=== PATIENT | male | born 1945 | race Caucasian/White ===

== ENCOUNTER 2017-12-22 07:39 | Day surgery (SDC) | payer MEDICARE, BC ==
[~2017-12-22] VITALS: Ht 167.6 cm; Wt 81.3 kg
[~2017-12-22 07:39] MED LIST: ATOR20; CALCAVITD; CEPH500 PO; CHOL10002; CYCL10; DAILY MULTIPLE1 EACH; DOXY100; FAMO40; FLAX; Flomax0.4 MG PO; METF500; NORT10; Norco 10-325 T1 EACH PO; OMEG1CAP30; Ocuvite Softge1 EAC1; Zofran Odt4 MG SL
== END 2017-12-22 10:01 | disposition home or self-care (01) ==
LOC: ORSCSDS 07:39
PROVIDERS: Internal Medicine Gastroenterology
PROC: 0DBN8ZX Excision of Sigmoid Colon, Via Natural or Artificial Opening Endoscopic, Diagnostic (ICD-10-PCS; principal; 2017-12-22 09:00)
PROC: 0DBK8ZX Excision of Ascending Colon, Via Natural or Artificial Opening Endoscopic, Diagnostic (ICD-10-PCS; principal; 2017-12-22 09:00)
DX: R19.7 Diarrhea, unspecified (principal); K63.5 Polyp of colon; D12.2 Benign neoplasm of ascending colon; K57.30 Diverticulosis of large intestine without perforation or abscess without bleeding; K64.8 Other hemorrhoids; Z86.010 Personal history of colon polyps; K21.9 Gastro-esophageal reflux disease without esophagitis; E11.9 Type 2 diabetes mellitus without complications; E78.5 Hyperlipidemia, unspecified; I10 Essential (primary) hypertension; K58.9 Irritable bowel syndrome, unspecified; E66.9 Obesity, unspecified; Z68.30 Body mass index [BMI] 30.0-30.9, adult; Z87.891 Personal history of nicotine dependence; Z79.84 Long term (current) use of oral hypoglycemic drugs; Z79.899 Other long term (current) drug therapy
CPT/HCPCS: 82947; 88305; J7120

== ENCOUNTER 2018-12-29 19:19 | Emergency (ER) | payer MEDICARE, BC ==
[~2018-12-29] VITALS: Ht 167.6 cm; Wt 83.0 kg
[~2018-12-29 19:19] MED LIST changes: -METF500; +METF500 PO
[2018-12-29] MEDS ORDERED: ATOR20 PO (20:03)
[2018-12-29] MEDS ORDERED: Anti-Diarrheal2 MG (20:03)
[2018-12-29] MEDS ORDERED: DOXY100 PO (20:03)
[2018-12-29] MEDS ORDERED: ASPI81CH PO (20:03)
[2018-12-29] MEDS ORDERED: Bactrim Ds Tab1 EACH PO (21:01)
== END 2018-12-29 21:10 | disposition home or self-care (01) ==
LOC: ER 19:19
DX: L02.511 Cutaneous abscess of right hand (principal); Z88.8 Allergy status to other drugs, medicaments and biological substances; E11.9 Type 2 diabetes mellitus without complications; E78.5 Hyperlipidemia, unspecified; Z79.84 Long term (current) use of oral hypoglycemic drugs; Z79.82 Long term (current) use of aspirin; Z79.899 Other long term (current) drug therapy; Z87.891 Personal history of nicotine dependence
CPT/HCPCS: 10060; 99283-25